=== PATIENT | female | born 1990 | race Caucasian/White ===

== ENCOUNTER 2016-07-09 16:05 | Emergency (ER) | payer MEDICAID ==
[2016-07-09 16:28] VITALS: BP 130/75
--- NOTE | 2016-07-09 17:11 | EDM.PDOC ---
ED HPI GI/ABDOMINAL - General Chief Complaint: Gastrointestinal Problem Stated Complaint: NAUSEA/vomiting Time Seen by Provider: 07/09/16 16:50 Source of Information: Reports: Patient History Limitations: Reports: No limitations - History of Present Illness Symptom Onset Date: 07/09/16 Symptom Onset Time: 12:00 Timing/Duration: Reports: Day(s): (3 weeks on and off-nausea with vomiting undigested food- states she was instructed by employer to come in and have HCG test and evaluate for .), Intermittent, Waxing/waning Location: RUQ Quality: Reports: fullness Severity: mild Improves with: Reports: vomiting Worsens with: Reports: other (Thoughts of food-) Context: Reports: sick contact. Denies: bad/questionable food, recent surgery, recent trauma Associated Symptoms (-Female): Reports: denies other symptoms, loss of appetite, nausea/vomiting. 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) Para: 1 (Spontaneous ) LMP (Approximate): other (No COntrol) 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 History: Reports: None Neurological History: Reports: None Psychiatric History: Reports: None Endocrine/Metabolic History: Reports: Diabetes, gestational, Obesity/BMI 30+ Hematologic History: Reports: None Immunologic History: Reports: None Oncologic (Cancer) History: Reports: None Dermatologic History: Reports: Other (see below) Other Dermatologic History: HIDRANITIS SUPPERTIVA - Infectious Disease History Infectious Disease History: Reports: None - Past Surgical History Respiratory Surgical History: Reports: Tracheostomy Social & Family History - Tobacco Use Smoking Status *Q: Current Every Day Smoker Years of Tobacco use: 7 Packs/Tins Daily: 0.5 Second Hand Smoke Education Provided: Yes - Tobacco Core Measures Tobacco Use/Smoking Within Last 30 Days: Yes Smoking Frequency Within Last 30 Days: Reports: Five or more cigarettes per day Desires Tobacco Cessation Medication: Refuses FDA approved med - Caffeine Use Caffeine Use: Reports: Coffee, Soda - Alcohol Use Alcohol Use History: Yes Days Per Week of Alcohol Use: 1 Alcohol Use Frequency: Rarely - Recreational Drug Use Recreational Drug Use: No Drug Use in Last 12 Months: No - Sexual History Sexual History: Reports: Sexually active (No COntrol-Advised with Folic acid supplementation) - Living Situation & Occupation Living situation: Reports: single, other Occupation: employed (Lives with friend) ED ROS GENERAL - Review of Systems Review Of Systems: See Below Constitutional: Reports: decreased appetite. Denies: fever, chills, malaise, weakness HEENT: Reports: No symptoms Respiratory: Reports: No Symptoms Cardiovascular: Reports: No symptoms Endocrine: Reports: no symptoms GI/Abdominal: Reports: Anorexia, Decreased appetite, Nausea, Vomiting. Denies: Black stool, Bloody stool, Constipation, Diarrhea, Difficulty swallowing : Reports: no symptoms 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: Reports: no symptoms Skin: Reports: other (Hidranitits Suppurativa) Neurological: Reports: No Symptoms Psychiatric: Reports: No symptoms Hematologic/Lymphatic: Reports: no symptoms Immunologic: Reports: no symptoms (Serum HCG negative) ED EXAM, GI/ABD - Physical Exam Exam: See Below Exam Limited By: No limitations General Appearance: alert, WD/WN, no apparent distress Eyes: bilateral: normal appearance, EOMI Ears: normal external exam, normal canal, hearing grossly normal, normal TMs Nose: normal inspection, normal mucosa, no blood Throat/Mouth: Normal inspection, Normal lips, Normal teeth, Normal gums, Normal oropharynx, Normal voice, No airway compromise Head: atraumatic, normocephalic Neck: normal inspection, supple, non-tender, full range of motion Respiratory/Chest: no respiratory distress, lungs clear, normal breath sounds, no accessory muscle use, chest non-tender Cardiovascular: normal peripheral pulses, regular rate, rhythm, no edema, no JVD , no murmur, no rub GI/Abdominal: normal bowel sounds, soft, non tender, no organomegaly, no distention, no mass (Female) Exam: Deferred Rectal (Female) Exam: Deferred Back Exam: normal inspection, full range of motion Extremities: normal inspection, normal range of motion, non-tender, normal capillary refill Neurological: alert, oriented, CN II-XII intact, normal cognition, normal gait, normal reflexes, no motor/sensory deficits Psychiatric: normal affect, normal mood Skin Exam: Warm, Dry, Intact, Normal color, No rash, Other (Tattoo left chest region-scar post intubation for influenza with pnuemonia) Lymphatic: no adenopathy Course - Vital Signs Last Recorded V/S: Last Vital Signs Temp 37.0 C 07/09/16 16:10 Pulse 87 07/09/16 16:10 Resp 16 07/09/16 16:10 BP 130/75 07/09/16 16:10 Pulse Ox 0 L 07/09/16 16:10 - Orders/Labs/Meds Labs: Laboratory Tests 07/09/16 Range/Units 16:40 HCG, Qual Negative Departure - Departure Time of Disposition: 17:17 Disposition: Home, Self-Care 01 Condition: good Clinical Impression: Gastroenteritis Instructions: Viral Gastroenteritis, Adult, [id number], Heartburn, Nausea and Vomiting, Adult, [id number] Referrals: PCP,None [Primary Care Provider] - Forms: ED Department Discharge Additional Instructions: Patient advised on negative HCG- Discussed gastroenteritis and use of clear liquid diet. Advised to F/U with PCP for evaluation and possible EGD as indicated. Discussed importance and preventative care and cessation of tobacco use. Patient verbalizes understanding and discharged stable condition. MLP Sign Off - Signature Requirements MLP Sign Off: No - Problem List & Annotations (1) Gastroenteritis SNOMED Code(s): 52963880 Code(s): K52.9 - NONINFECTIVE GASTROENTERITIS AND COLITIS, UNSPECIFIED Status: Acute Current Visit: Yes - Assessment/Plan Assessment:: HCG negative. Discussed gastroenteritis and dehydration. Reassurance and discharged stable condition to F/U next week or prn. Advised small frequent feeding with clear liquids. Plan: HCG negative. Discussed gastroenteritis and dehydration. Reassurance and discharged stable condition to F/U next week or prn. Advised small frequent feeding with clear liquids.
== END 2016-07-09 17:30 | disposition home or self-care (01) ==
LOC: CC.ED 16:05
DX: K52.9 Noninfective gastroenteritis and colitis, unspecified (principal); K21.9 Gastro-esophageal reflux disease without esophagitis; E66.9 Obesity, unspecified; F17.210 Nicotine dependence, cigarettes, uncomplicated; Z87.01 Personal history of pneumonia (recurrent); Z88.5 Allergy status to narcotic agent; Z91.09 Other allergy status, other than to drugs and biological substances
CPT/HCPCS: 36415; 84703; 99283

== ENCOUNTER 2016-07-19 14:13 | Emergency (ER) | payer MEDICAID ==
[2016-07-19 14:32] VITALS: BP 148/93
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
== END 2016-07-19 15:25 | disposition home or self-care (01) ==
LOC: CC.ED 14:13
DX: S09.90XA Unspecified injury of head, initial encounter (principal); S00.83XA Contusion of other part of head, initial encounter; S40.021A Contusion of right upper arm, initial encounter; K21.9 Gastro-esophageal reflux disease without esophagitis; E66.9 Obesity, unspecified; F17.210 Nicotine dependence, cigarettes, uncomplicated; Z88.5 Allergy status to narcotic agent; Z91.09 Other allergy status, other than to drugs and biological substances; Z87.01 Personal history of pneumonia (recurrent); W50.0XXA Accidental hit or strike by another person, initial encounter
CPT/HCPCS: 99282

== ENCOUNTER 2016-08-01 14:18 | Emergency (ER) | payer MEDICAID ==
[2016-08-01 14:39] VITALS: BP 123/86
--- NOTE | 2016-08-01 15:01 | EDM.PDOC ---
ED HPI Skin/Rash - General Chief Complaint: Abdominal Pain Stated Complaint: ABDOMINAL PAINS/BOILS Time Seen by Provider: 08/01/16 14:49 Source: Reports: Patient History Limitations: Reports: No limitations - History of Present Illness INITIAL COMMENTS - FREE TEXT/NARRATIVE: This patient is a 26 year old female that present to the ER. Patient reports she has had for a a couple of weeks abscesses. She reports she gets them often. She reports she has a couple in her groin area and her back. She reports the right groin abscess is draining. She reports having epigastric abdominal pain for several months. She reports her abdominal pain has been worked up and had scopes without findings other than enlarged spleen. She said they originally thought the pain was caused by her gallbladder, but this was ruled out per patient. Nothing changed in epigastric pain from chronic pain. Her acute ER complaint is abscesses. She denies cody, dizziness, n, v, d, f, cp, soa, urinary/ bowel changes. Timing: Reports: still present Location, Skin: Reports: groin Severity: moderate Associated Symptoms: Denies: confusion, headaches, seizure, shortness of breath , syncope, weakness, chest pain, cough, sputum, fever/chills, diaphoresis, malaise, loss of appetite, nausea/vomiting, rash - Related Data Allergies Allergy/AdvReac Type Severity Reaction Status Date / Time adhesive Allergy Rash Verified 08/01/16 14:27 ketorolac [From Toradol] Allergy Itching Verified 08/01/16 14:27 glitter Allergy Hives Uncoded 08/01/16 14:27 Home Meds: Ambulatory Orders Medication Instructions Recorded Confirmed Naproxen [Naprosyn] 500 mg PO Q8H PRN 07/19/16 08/01/16 Past Medical History - Past Health History Medical/Surgical History: Denies Medical/Surgical History HEENT History: Reports: Impaired vision Cardiovascular History: Reports: None Respiratory History: Reports: Bronchitis, recurrent, Intubation, previous, Pneumonia, recurrent Gastrointestinal History: Reports: GERD, Other (see below) Other Gastrointestinal History: ENLARGED SPLEEN Genitourinary History: Reports: Other (see below) Other Genitourinary History: 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 History: Reports: Fracture Neurological History: Reports: None, Other (see below) Other Neuro History: slipped disc to lumbar region Psychiatric History: Reports: None Endocrine/Metabolic History: Reports: Diabetes, gestational, Obesity/BMI 30+ Hematologic History: Reports: None Immunologic History: Reports: None Oncologic (Cancer) History: Reports: None Dermatologic History: Reports: Other (see below) Other Dermatologic History: HIDRANITIS SUPPERTIVA - Infectious Disease History Infectious Disease History: Reports: Chicken pox - Past Surgical History Respiratory Surgical History: Reports: Tracheostomy Female Surgical History: Reports: None Social & Family History - Family History Family Medical History: Noncontributory - Tobacco Use Smoking Status *Q: Current Every Day Smoker Years of Tobacco use: 7 Packs/Tins Daily: 0.5 - Caffeine Use Caffeine Use: Reports: Coffee - Alcohol Use Days Per Week of Alcohol Use: 1 - Recreational Drug Use Recreational Drug Use: No Drug Use in Last 12 Months: No Recreational Drug Type: Reports: Marijuana/Hashish Recreational Drug Use Frequency: Rarely - Sexual History Sexual History: Reports: Sexually active (No COntrol-Advised with Folic acid supplementation) - Living Situation & Occupation Living situation: Reports: single, other Occupation: employed (Lives with friend) ED ROS GENERAL - Review of Systems Review Of Systems: See Below Constitutional: Reports: no symptoms HEENT: Reports: No symptoms Respiratory: Reports: No Symptoms Cardiovascular: Reports: No symptoms Endocrine: Reports: no symptoms GI/Abdominal: Reports: Abdominal pain (epigastric pain) : Reports: no symptoms 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: Reports: no symptoms Skin: Reports: other (abscesses groin) Neurological: Reports: No Symptoms Psychiatric: Reports: No symptoms Hematologic/Lymphatic: Reports: no symptoms Immunologic: Reports: no symptoms ED EXAM, SKIN/RASH Exam: See Below Exam Limited By: No limitations General Appearance: alert, WD/WN, no apparent distress, obese Eye Exam: bilateral eye: normal inspection, PERRL Ears: normal external exam, normal canal, hearing grossly normal, normal TMs Nose: normal inspection, normal mucosa, no blood Throat/Mouth: Normal inspection, Normal lips, Normal teeth, Normal gums, Normal oropharynx, Normal voice, No airway compromise Head: atraumatic, normocephalic Neck: normal inspection, supple, non-tender, full range of motion Respiratory/Chest: no respiratory distress, lungs clear, normal breath sounds, no accessory muscle use Cardiovascular: normal peripheral pulses, regular rate, rhythm, no edema, no gallop, no JVD, no murmur, no rub Peripheral Pulses: 2+: radial (L), radial (R), posterior tibial (L), posterior tibial (R), dorsalis pedis (L), dorsalis pedis (R) GI/Abdominal: soft, tender (mild epigastric), other (obese) Neurological: alert, oriented Psychiatric: normal affect, normal mood Skin: Warm, Dry, Normal color, No rash, Other (RN in room. Small abscess to bilateral grions, some draining. None can be drained at this time. No surrounding redness. no heat. ) Lymphatic: no adenopathy Course - Vital Signs Last Recorded V/S: Last Vital Signs Temp 96.7 F 08/01/16 14:24 Pulse 70 08/01/16 14:24 Resp 18 08/01/16 14:24 BP 123/86 08/01/16 14:24 Pulse Ox 98 08/01/16 14:24 Departure - Departure Time of Disposition: 14:55 Disposition: Home, Self-Care 01 Condition: good (abscess) Clinical Impression: Abscess Instructions: Abscess Forms: ED Department Discharge Additional Instructions: Followup with your primary care provider: [phone] Return to the ER for worsening of condition or any emergent concerns Wash areas with soap and water Bactrim DS 2 pills twice a day for 14 days #56 no refill Keflex 500mg 1 pill four times a day for 7 days 328 no refill Diflucan 150mg 1 pill now, then again in 72 hours #2 no refill
== END 2016-08-01 16:10 | disposition home or self-care (01) ==
LOC: CC.ED 14:18
DX: L02.214 Cutaneous abscess of groin (principal); K21.9 Gastro-esophageal reflux disease without esophagitis; E66.9 Obesity, unspecified; F17.210 Nicotine dependence, cigarettes, uncomplicated; Z87.01 Personal history of pneumonia (recurrent); Z88.5 Allergy status to narcotic agent; Z91.09 Other allergy status, other than to drugs and biological substances
CPT/HCPCS: 99282

== ENCOUNTER 2016-10-28 16:49 | Emergency (ER) | payer MEDICAID, OTHER ==
--- NOTE | 2016-10-28 17:28 | EDM.PDOC ---
ED HPI GENERAL MEDICAL PROBLEM - General Chief Complaint: Laceration Stated Complaint: LT THUMB/CUT Time Seen by Provider: 10/28/16 17:10 Source of Information: Reports: Patient - History of Present Illness INITIAL COMMENTS - FREE TEXT/NARRATIVE: cresent shaped laceration of left thumb while cutting onions. 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) - Related Data Allergies Allergy/AdvReac Type Severity Reaction Status Date / Time adhesive Allergy Rash Verified 10/28/16 16:58 ketorolac [From Toradol] Allergy Itching Verified 10/28/16 16:58 glitter Allergy Hives Uncoded 10/28/16 16:58 Home Meds: Home Meds Naproxen [Naprosyn] 500 mg PO Q8H PRN 07/19/16 [History] Past Medical History - Past Health History Medical/Surgical History: Denies Medical/Surgical History HEENT History: Reports: Impaired Vision Cardiovascular History: Reports: None Respiratory History: Reports: Bronchitis, Recurrent, Intubation, Previous, Pneumonia, Recurrent Gastrointestinal History: Reports: GERD Other Gastrointestinal History: ENLARGED SPLEEN Genitourinary History: Reports: Other (See Below) Other Genitourinary History: 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: 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 History: Reports: Fracture Neurological History: Reports: None Other Neuro History: slipped disc to lumbar region Psychiatric History: Reports: None Endocrine/Metabolic History: Reports: Diabetes, Gestational, Obesity/BMI 30+ Hematologic History: Reports: None Immunologic History: Reports: None Oncologic (Cancer) History: Reports: None Dermatologic History: Reports: Other (See Below) Other Dermatologic History: HIDRANITIS SUPPERTIVA - Infectious Disease History Infectious Disease History: Reports: Chicken Pox - Past Surgical History Respiratory Surgical History: Reports: Tracheostomy Female Surgical History: Reports: None Social & Family History - Family History Family Medical History: Noncontributory - Tobacco Use Smoking Status *Q: Current Every Day Smoker Years of Tobacco use: 10 Packs/Tins Daily: 1 - Caffeine Use Caffeine Use: Reports: None - Alcohol Use Days Per Week of Alcohol Use: 1 - Recreational Drug Use Recreational Drug Use: No Drug Use in Last 12 Months: No Recreational Drug Type: Reports: Marijuana/Hashish Recreational Drug Use Frequency: Rarely - Sexual History Sexual History: Reports: Sexually Active - Living Situation & Occupation Living situation: Reports: Single, Other Occupation: Employed ED ROS GENERAL - Review of Systems Review Of Systems: ROS reveals no pertinent complaints other than HPI. ED EXAM, SKIN/RASH Exam: See Below Text/Narrative:: crescent shaped laceration from a knife of left thimb nearly removing a 1.5 cm peice of skin. Exam Limited By: No Limitations General Appearance: Alert, WD/WN Ears: Normal External Exam Nose: Normal Inspection Throat/Mouth: Normal Inspection Head: Atraumatic Neck: Normal Inspection Respiratory/Chest: No Respiratory Distress Cardiovascular: Normal Peripheral Pulses Skin: Warm, Dry, Wound/Incision Location, Skin: Upper Extremity, Left ED SKIN PROCEDURES - Laceration/Wound Repair Left Finger Appearance: Superficial Skin Prep: Providone-Iodine (Betadine) Closed with: Dermabond Course - Vital Signs Last Recorded V/S: Last Vital Signs Temp 95.6 F 10/28/16 16:54 Pulse 88 10/28/16 16:54 Resp 20 10/28/16 16:54 BP 127/77 10/28/16 16:54 Pulse Ox 96 10/28/16 16:54 Departure - Departure Time of Disposition: 17:28 (Wll use dermabond to close flap over wound. patient instructed that most of the flap will due to lack of blood flow.) Disposition: Home, Self-Care 01 Clinical Impression: Laceration - Discharge Information Instructions: Laceration Care, Adult, [id number] Forms: ED Department Discharge Additional Instructions: Keep wound clan and dry.
== END 2016-10-28 18:00 | disposition home or self-care (01) ==
LOC: CC.ED 16:49
CPT/HCPCS: 12001; 99283

== ENCOUNTER 2016-11-16 18:56 | Emergency (ER) | payer OTHER ==
[2016-11-16] MEDS ORDERED: Diphtheria,Pertussis(Acell),Tetanus Vaccine 0.5 ML Syringe IM ONE (19:32)
[2016-11-16 19:36] VITALS: BP 128/85
--- NOTE | 2016-11-16 19:36 | EDM.PDOC ---
ED HPI GENERAL MEDICAL PROBLEM - General Chief Complaint: Upper Extremity Injury/Pain Stated Complaint: finger injury Time Seen by Provider: 11/16/16 18:56 Source of Information: Reports: Patient History Limitations: Reports: No Limitations - History of Present Illness INITIAL COMMENTS - FREE TEXT/NARRATIVE: Albertina is a 26 yo female who presents to the ER with complaints of left index finger pain. States she was at work at the [employer] and got her finger slammed in the walk in freezer door. States it hurts to bend it and has a cut to the top of it. Right 2-Index finger Pain Score (Numeric/FACES): 4 - Related Data Allergies Allergy/AdvReac Type Severity Reaction Status Date / Time adhesive Allergy Rash Verified 11/16/16 19:10 ketorolac [From Toradol] Allergy Itching Verified 11/16/16 19:10 glitter Allergy Hives Uncoded 11/16/16 19:10 Home Meds: Home Meds Naproxen [Naprosyn] 500 mg PO Q8H PRN 07/19/16 [History] Past Medical History - Past Health History Medical/Surgical History: Denies Medical/Surgical History HEENT History: Reports: Impaired Vision, Other (See Below) Other HEENT History: frequent strep throat Cardiovascular History: Reports: None Respiratory History: Reports: Bronchitis, Recurrent, Intubation, Previous, Pneumonia, Recurrent Gastrointestinal History: Reports: GERD, Other (See Below) Other Gastrointestinal History: ENLARGED SPLEEN Genitourinary History: Reports: Other (See Below) Other Genitourinary History: 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: 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 History: Reports: Fracture Neurological History: Reports: Other (See Below) Other Neuro History: slipped disc to lumbar region Psychiatric History: Reports: None Endocrine/Metabolic History: Reports: Diabetes, Gestational, Obesity/BMI 30+ Hematologic History: Reports: Other (See Below) Other Hematologic History: toxic shock syndrome Immunologic History: Reports: None Oncologic (Cancer) History: Reports: None Dermatologic History: Reports: Other (See Below) Other Dermatologic History: HIDRANITIS SUPPERTIVA - Infectious Disease History Infectious Disease History: Reports: Chicken Pox - Past Surgical History Respiratory Surgical History: Reports: Tracheostomy Female Surgical History: Reports: None Social & Family History - Family History Family Medical History: Noncontributory - Tobacco Use Smoking Status *Q: Current Every Day Smoker Years of Tobacco use: 8 Packs/Tins Daily: 0.5 - Caffeine Use Caffeine Use: Reports: Coffee - Alcohol Use Days Per Week of Alcohol Use: 1 - Recreational Drug Use Recreational Drug Use: No Drug Use in Last 12 Months: No Recreational Drug Type: Reports: Marijuana/Hashish Recreational Drug Use Frequency: Rarely - Sexual History Sexual History: Reports: Sexually Active - Living Situation & Occupation Living situation: Reports: Single, Other Occupation: Employed Review of Systems - Review of Systems Review Of Systems: ROS reveals no pertinent complaints other than HPI. ED EXAM, GENERAL - Physical Exam Exam: See Below Exam Limited By: No Limitations General Appearance: Alert, No Apparent Distress Extremities: Normal Range of Motion, Other (mild discomfort with palpation of proximal phalange of 2nd digit left hand. Mild swelling noted. ) Skin Exam: Wound/Incision (1cm superficial laceration noted to left index finger. No active bleeding. Band aid applied. ) Course - Vital Signs Last Recorded V/S: Last Vital Signs Temp 96.9 F 11/16/16 18:56 Pulse 92 11/16/16 18:56 Resp 18 11/16/16 18:56 BP 149/99 H 11/16/16 18:56 Pulse Ox 97 11/16/16 18:56 - Orders/Labs/Meds Orders: Active Orders 24 hr Category Date Time Status Fingers Second Digit Lt F1 [CR] Stat Exams 11/16/16 19:07 Taken Departure - Departure Time of Disposition: 19:34 Disposition: Home, Self-Care 01 Clinical Impression: Laceration of finger of left hand Qualifiers: Encounter type: initial encounter Finger: index finger Damage to nail status: without damage Foreign body presence: without foreign body Qualified Code(s): S61.211A - Laceration without foreign body of left index finger without damage to nail, initial encounter Contusion of finger of left hand Qualifiers: Encounter type: initial encounter Finger: index finger Damage to nail status: without damage Qualified Code(s): S60.022A - Contusion of left index finger without damage to nail, initial encounter - Discharge Information Forms: ED Department Discharge Additional Instructions: 1) Recommend gradually increasing ROM of finger. No finger splint applied today 2) Alternate Tylenol with ibuprofen every 4 hours as needed for discomfort. 3) May ice 20 minutes at a time, 5 times a day. 4) If any ongoing discomfort or concerns, recommend returning to clinic for follow up. 5) Tetanus was updated today. - Problem List & Annotations (1) Contusion of finger of left hand SNOMED Code(s): 26299757 Code(s): S60.00XA - CONTUSION OF UNSP FINGER WITHOUT DAMAGE TO NAIL, INIT ENCNTR Status: Acute Current Visit: Yes Qualifiers: Encounter type: initial encounter Finger: index finger Damage to nail status: without damage Qualified Code(s): S60.022A - Contusion of left index finger without damage to nail, initial encounter (2) Laceration of finger of left hand SNOMED Code(s): 200610181, 815586948 Code(s): S61.219A - LACERATION W/O FB OF UNSP FINGER W/O DAMAGE TO NAIL, INIT Status: Acute Current Visit: Yes Qualifiers: Encounter type: initial encounter Finger: index finger Damage to nail status: without damage Foreign body presence: without foreign body Qualified Code(s): S61.211A - Laceration without foreign body of left index finger without damage to nail, initial encounter - Problem List Review Problem List Initiated/Reviewed/Updated: Yes - My Orders Last 24 Hours: My Active Orders 11/16/16 19:07 Fingers Second Digit Lt F1 [CR] Stat - Assessment/Plan Last 24 Hours: My Active Orders 11/16/16 19:07 Fingers Second Digit Lt F1 [CR] Stat Plan: see additional instructions. X-rays were negative.
== END 2016-11-16 19:43 | disposition home or self-care (01) ==
LOC: CC.ED 18:56
DX: S61.211A Laceration without foreign body of left index finger without damage to nail, initial encounter (principal); S60.022A Contusion of left index finger without damage to nail, initial encounter; H54.7 Unspecified visual loss; K21.9 Gastro-esophageal reflux disease without esophagitis; E66.9 Obesity, unspecified; F17.210 Nicotine dependence, cigarettes, uncomplicated; Z91.048 Other nonmedicinal substance allergy status; Z88.8 Allergy status to other drugs, medicaments and biological substances; W23.0XXA Caught, crushed, jammed, or pinched between moving objects, initial encounter; Z23 Encounter for immunization; Y99.0 Civilian activity done for income or pay
CPT/HCPCS: 73140-F1; 90471; 90715; 99283